=== PATIENT | female | born 1990 | race Caucasian/White ===

== ENCOUNTER 2017-04-27 21:13 | Emergency (ER) | payer MEDICARE | END 2017-04-28 01:21 | disposition home or self-care (01) | LOC: ER1 21:13 | DX: K59.00 Constipation, unspecified (principal); Z88.5 Allergy status to narcotic agent | CPT/HCPCS: 74022; 84703; 99283 ==

== ENCOUNTER → 2021-01-11 | Outpatient (CLI) | payer OTHER ==
[~2021-01-11] MED LIST: AUGMENTIN 875-1 EACH PO; BACTRIM DS TAB1 EACH PO; BACTROBAN OINT22 GM EXT; COLACE 100MG C100 MG PO; DELSYM30 MG/5 ML PO; FLONASE 0.05% N16 GM; HYDROCODON-ACE1 EAC6 PO; OMNICEF 300 MG300 MG PO; TAMIFLU75 MG PO; VENLAFAXINE HC225 MG PO; VRAYLAR1.5 MG PO; ZOFRAN4 MG PO
[2021-01-11 12:13] LABS: HEMOGLOBIN 12.5 gm/dl (12.3-15.3); RED BLOOD COUNT 4.42 M/UL (4.00-5.10); WHITE BLOOD COUNT 6.3 K/UL (4.5-11.0)
== END ==
LOC: OPSV2 11:21
PROVIDERS: Obstetrics & Gynecology
DX: Z01.812 Encounter for preprocedural laboratory examination (principal); N92.0 Excessive and frequent menstruation with regular cycle
CPT/HCPCS: 81001; 85025

== ENCOUNTER 2021-01-14 09:29 | Day surgery (SDC) | payer OTHER ==
[~2021-01-14] VITALS: Ht 162.6 cm; Wt 68.0 kg
[~2021-01-14 09:29] MED LIST changes: -COLACE 100MG C100 MG PO; -HYDROCODON-ACE1 EAC6 PO; -VENLAFAXINE HC225 MG PO; -VRAYLAR1.5 MG PO
[2021-01-14] MEDS ORDERED: VENLAFAXINE HC225 MG PO (10:42)
[2021-01-14] MEDS ORDERED: VRAYLAR1.5 MG PO (10:43)
[2021-01-14] MEDS ORDERED: HYDROCODON-ACE1 EAC6 PO (11:27)
[2021-01-14] MEDS ORDERED: COLACE 100MG C100 MG PO (11:27)
[2021-01-15 06:59] LABS: HEMOGLOBIN 11.6 gm/dl (12.3-15.3)
== END 2021-01-15 12:51 | disposition home or self-care (01) ==
LOC: OR 09:29 → MED SURG 4 14:38 → OR 01-15 12:51
PROVIDERS: Obstetrics & Gynecology
PROC: 0UT54ZZ Resection of Right Fallopian Tube, Percutaneous Endoscopic Approach (ICD-10-PCS; principal; 2021-01-14 10:15)
PROC: 0UT04ZZ Resection of Right Ovary, Percutaneous Endoscopic Approach (ICD-10-PCS; principal; 2021-01-14 10:15)
PROC: 0UT94ZZ Resection of Uterus, Percutaneous Endoscopic Approach (ICD-10-PCS; principal; 2021-01-14 10:15)
DX: N87.9 Dysplasia of cervix uteri, unspecified (principal); N83.291 Other ovarian cyst, right side; N85.8 Other specified noninflammatory disorders of uterus; N81.89 Other female genital prolapse; E05.90 Thyrotoxicosis, unspecified without thyrotoxic crisis or storm; E04.0 Nontoxic diffuse goiter; J30.2 Other seasonal allergic rhinitis; F17.210 Nicotine dependence, cigarettes, uncomplicated; K58.9 Irritable bowel syndrome, unspecified; F31.9 Bipolar disorder, unspecified; Z88.5 Allergy status to narcotic agent; Z79.899 Other long term (current) drug therapy
CPT/HCPCS: 36415; 85014; 85018; J0690; J1100; J1940; J2001; J2250; J2270; J2405; J2704; J2710; J2795; J3010; J7120

== ENCOUNTER 2021-07-24 10:14 | Emergency (ER) | payer OTHER ==
[~2021-07-24 10:14] MED LIST changes: +COLACE 100MG C100 MG PO; +HYDROCODON-ACE1 EAC6 PO; +VENLAFAXINE HC225 MG PO; +VRAYLAR1.5 MG PO
[2021-07-24 11:12] LABS: HEMOGLOBIN 12.1 gm/dl (12.3-15.3); RED BLOOD COUNT 4.61 M/UL (4.00-5.10); WHITE BLOOD COUNT 9.8 K/UL (4.5-11.0)
[2021-07-24 11:29] LABS: BUN/CREATININE RATIO 20 (0-10)
[2021-07-24] MEDS ORDERED: ZOFRAN ODT 4 MG4 MG SL (12:14)
== END 2021-07-24 12:26 | disposition home or self-care (01) ==
LOC: ER1 10:14
PROVIDERS: Student in an Organized Health Care Education/Training Program
DX: U07.1 COVID-19 (principal); E86.0 Dehydration; R11.2 Nausea with vomiting, unspecified
CPT/HCPCS: 71045; 80053; 85027; 99283; J7030

== ENCOUNTER 2021-10-11 14:45 | Emergency (ER) | payer OTHER ==
[~2021-10-11 14:45] MED LIST changes: +ZOFRAN ODT 4 MG4 MG SL
[2021-10-11 16:16] LABS: HEMOGLOBIN 11.9 gm/dl (12.3-15.3); RED BLOOD COUNT 4.41 M/UL (4.00-5.10); WHITE BLOOD COUNT 10.3 K/UL (4.5-11.0)
[2021-10-11 16:56] LABS: BUN/CREATININE RATIO 16 (0-10)
[2021-10-11] MEDS ORDERED: MACROBID 100 M100 MG PO (17:21)
== END 2021-10-11 18:30 | disposition home or self-care (01) ==
LOC: ER1 14:45
PROVIDERS: Physician Assistant
DX: N30.90 Cystitis, unspecified without hematuria (principal); K59.00 Constipation, unspecified
CPT/HCPCS: 74018; 80053; 81001; 85025; 99283

== ENCOUNTER → 2022-07-22 | Outpatient (CLI) | payer OTHER ==
[~2022-07-22] MED LIST changes: +MACROBID 100 M100 MG PO
== END ==
LOC: LAB 11:45
DX: B34.9 Viral infection, unspecified (principal); Z20.822 Contact with and (suspected) exposure to COVID-19
CPT/HCPCS: U0002